=== PATIENT | male | born 1940 | race Caucasian/White ===

== ENCOUNTER 2021-02-05 16:57 | Emergency (ER) | payer MEDICARE, OTHER ==
--- NOTE | 2021-02-05 17:15 | ED ---
Fall HPI - General Stated Complaint: slip and fall Time Seen by Provider: 02/05/21 17:04 Source: patient, RN notes reviewed - History of Present Illness Initial Comments: Patient is a 80-year-old male that presents to the emergency department via EMS after falling over hitting the back of his head. He notes that he was drinking beer. When asked him a beers she drank he said a lot. When I asked to specify patient stated that he was drinking as much as he possibly could. Patient was otherwise pleasant on bed. C-collar was in place and did have a contusion to the posterior aspect of his scalp. He denied any pain at this time. He notes that the c-collar was choking the shit out of him. He denied any headache blurry vision change in vision. He denied any chest pain shortness breath headache nausea vomiting diarrhea constipation fever fatigue chills. Patient denied taking any blood thinners. - Related Data Allergies Allergy/AdvReac Type Severity Reaction Status Date / Time No Known Allergies Allergy Verified 02/05/21 17:55 Review of Systems ROS Statement: Those systems with pertinent positive or pertinent negative responses have been documented in the HPI. ROS Other: All systems not noted in ROS Statement are negative. General Exam Limitations: no limitations General appearance: alert, in no apparent distress, appears intoxicated Head exam: Present: normocephalic, normal inspection. Absent: atraumatic (Scalp contusion with minimal bleeding to the posterior aspect of the scalp.) Eye exam: Present: normal appearance, PERRL, EOMI. Absent: scleral icterus, conjunctival injection, periorbital swelling Neck exam: Present: normal inspection, other (C-collar in place) Respiratory exam: Present: normal lung sounds bilaterally. Absent: respiratory distress, wheezes, rales, rhonchi, stridor Cardiovascular Exam: Present: regular rate, normal rhythm, normal heart sounds. Absent: systolic murmur, diastolic murmur, rubs, gallop, clicks GI/Abdominal exam: Present: soft, normal bowel sounds. Absent: distended, tenderness, guarding, rebound, rigid Extremities exam: Present: normal inspection, full ROM, normal capillary refill. Absent: tenderness, pedal edema, joint swelling, calf tenderness Neurological exam: Present: alert, oriented X3 Psychiatric exam: Present: normal affect, normal mood Skin exam: Present: warm, dry, intact, normal color. Absent: rash Course Vital Signs 02/05/21 17:00 Temperature 98.1 F Pulse Rate 64 Respiratory 18 Rate Blood Pressure 187/90 O2 Sat by Pulse 99 Oximetry Medical Decision Making - Medical Decision Making 80-year-old male that presents via EMS for a fall with a head injury. Basic labs, CT of the brain and C-spine ordered. C-Collar in place. CT of the brain and C-spine negative for any acute process just some soft tissue swelling to the right posterior aspect of head. Labs unremarkable. Case discussed with Dr. Horne, patient discharge home follow-up primary care. - Lab Data Result diagrams: 02/05/21 17:44 02/05/21 17:44 Lab Results 02/05/21 02/05/21 Range/Units 17:44 17:44 WBC 6.8 (3.8-10.6) k/uL RBC 4.08 L (4.30-5.90) m/uL Hgb 14.6 (13.0-17.5) gm/dL Hct 43.2 (39.0-53.0) % MCV 105.9 H (80.0-100.0) fL MCH 35.9 H (25.0-35.0) pg MCHC 33.9 (31.0-37.0) g/dL RDW 12.9 (11.5-15.5) % Plt Count 238 (150-450) k/uL MPV 7.6 Neutrophils % 66 % Lymphocytes % 23 % Monocytes % 5 % Eosinophils % 1 % Basophils % 1 % Neutrophils # 4.5 (1.3-7.7) k/uL Lymphocytes # 1.6 (1.0-4.8) k/uL Monocytes # 0.4 (0-1.0) k/uL Eosinophils # 0.1 (0-0.7) k/uL Basophils # 0.1 (0-0.2) k/uL Macrocytosis Slight Sodium 131 L (137-145) mmol/L Potassium 4.2 (3.5-5.1) mmol/L Chloride 100 (98-107) mmol/L Carbon Dioxide 17 L (22-30) mmol/L Anion Gap 14 mmol/L BUN 19 (9-20) mg/dL Creatinine 1.21 (0.66-1.25) mg/dL Est GFR (CKD-EPI)AfAm 66 (>60 ml/min/1.73 sqM) Est GFR (CKD-EPI)NonAf 57 (>60 ml/min/1.73 sqM) Glucose 86 (74-99) mg/dL Calcium 9.0 (8.4-10.2) mg/dL Total Bilirubin 0.3 (0.2-1.3) mg/dL AST 33 (17-59) U/L ALT 14 (4-49) U/L Alkaline Phosphatase 72 (38-126) U/L Total Protein 7.0 (6.3-8.2) g/dL Albumin 4.2 (3.5-5.0) g/dL - Radiology Data Radiology results: report reviewed, image reviewed CT of the brain and C-spine: 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 No fracture. Cerebral atrophy. No acute intracranial abnormality. Left posterior parietal scalp soft tissue swelling. Disposition Clinical Impression: Fall, Scalp contusion Disposition: HOME SELF-CARE Condition: Stable Instructions (If sedation given, give patient instructions): Fall Prevention for Older Adults (ED) Additional Instructions: Please return to the Emergency Department if symptoms worsen or any other concerns. Is patient prescribed a controlled substance at d/c from ED?: No Referrals: Jessy Israel DO [Primary Care Provider] - 1-2 days Time of Disposition: 18:30
[2021-02-05 17:53] LABS: Basophils # (A) 0.1 k/uL (0-0.2); Basophils % (A) 1 %; Eosinophils # (A) 0.1 k/uL (0-0.7); Eosinophils % (A) 1 %; HCT 43.2 % (39.0-53.0); HGB 14.6 gm/dL (13.0-17.5); Lymphocytes # (A) 1.6 k/uL (1.0-4.8); Lymphocytes % (A) 23 %; MCH 35.9 pg (25.0-35.0); MCHC 33.9 g/dL (31.0-37.0); MCV 105.9 fL (80.0-100.0); Macrocytosis Slight; Mean Platelet Volume 7.6; Monocytes # (A) 0.4 k/uL (0-1.0); Monocytes % (A) 5 %; Neutrophils # (A) 4.5 k/uL (1.3-7.7); Neutrophils % (A) 66 %; Platelet Count 238 k/uL (150-450); RBC 4.08 m/uL (4.30-5.90); RDW 12.9 % (11.5-15.5); WBC 6.8 k/uL (3.8-10.6)
[2021-02-05 18:05] LABS: Albumin 4.2 g/dL (3.5-5.0); Potassium 4.2 mmol/L (3.5-5.1); Total Bilirubin 0.3 mg/dL (0.2-1.3)
[2021-02-05 18:10] LABS: Partial Thromboplastin Time 20.8 sec (22.0-30.0); Prothrombin Time 10.7 sec (9.0-12.0)
--- NOTE | 2021-02-05 18:18 | CT ---
EXAMINATION TYPE: CT brain yaya underwood DATE OF EXAM: 02/05/2021 COMPARISON: None HISTORY: pain after fall, LAC on back of head CT DLP: 1373.1 mGycm Automated exposure control for dose reduction was used. Images obtained of the brain and cervical spine without contrast. There is some cerebral cortical atrophy. There is no mass effect nor midline shift. There is no sign of intracranial hemorrhage. There is focal scalp soft tissue swelling over the left posterior parieta l bone. Calvarium is intact. The skull base is intact. There is normal aeration of the mastoid sinuse s. Cervical vertebra have normal alignment. There is large anterior bridging osteophyte formation from C 3 to C7. The facet joints are intact. There is no compression fracture. There is no subluxation. 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 No fracture. Cerebral atrophy. No acute intracranial abnormality. Left posterior parietal scalp soft tissue swelli ng.
[2021-02-05 18:58] VITALS: BP 180/78; PULSE 67; RESP 20; TEMP 98.4
== END 2021-02-05 18:56 | disposition home or self-care (01) ==
LOC: SUPCPDRO 16:57 → EC 16:57
DX: S00.03XA Contusion of scalp, initial encounter (principal); Z72.89 Other problems related to lifestyle; W01.0XXA Fall on same level from slipping, tripping and stumbling without subsequent striking against object, initial encounter
CPT/HCPCS: 36415; 70450; 72125; 80053; 85025; 85610; 85730; 99284